=== PATIENT | female | born 1965 | race Caucasian/White ===

== ENCOUNTER 2020-04-30 02:26 | Outpatient (CLI) | payer OTHER, SELFPAY ==
[2020-04-30 23:12] LABS: SARS-CoV-2 RNA PCR Negative
== END 2020-04-30 02:27 | disposition home or self-care (01) ==
LOC: ANHCOVIDDT 02:26
PROVIDERS: PCP Internal Medicine; Visit Provider Internal Medicine Gastroenterology
DX: Z01.812 Encounter for preprocedural laboratory examination (principal); Z20.828 Contact with and (suspected) exposure to other viral communicable diseases
CPT/HCPCS: 87635; C9803; U0003

== ENCOUNTER 2020-05-03 00:12 | Day surgery (SDC) | payer OTHER, SELFPAY ==
[2020-04-27 13:21] VITALS: BMI 29.0
[2020-05-03 06:38] VITALS: BMI 27.9
[2020-05-03] MEDS: LACTATED RINGERS 1,000 ML 150 ML IV CONT (06:41)
--- NOTE | 2020-05-03 07:03 | WPDANESEPPF ---
Anes - Initial Pre Proc Eval Procedure: Operation Date: 05/03/20 07:30 Proposed Procedures p Screening Colonoscopy - Dany Yo MD Date/Time: 05/03/20 07:03 Surgeon: Dany Yo MD Pre Op Diagnosis: neoplasm screening, fm hx colon ca Patient Data Age: 55 Gender: F Height: 5 ft 4 in Weight: 73.9 kg Allergies Allergy/AdvReac Type Severity Reaction Status Date / Time No Known Allergies Allergy Unknown Verified 05/03/20 06:36 Home Medications Medication Instructions Recorded Confirmed Type lisinopril 10 mg tablet 10 mg PO DAILY 06/18/19 04/27/20 History rosuvastatin 10 mg tablet 10 mg PO DAILY 06/18/19 04/27/20 History apple cider vinegar 1 piece of gum PO DAILY 04/27/20 05/03/20 History Patient hx anesthesia problems: none Family hx anesthesia problems: none PMFSH Past Medical History Medical History (Updated 05/03/20 @ 07:04 by Endy Wallace MD) History of tonsillitis 1969 or 68 HTN (hypertension) Hyperlipidemia Surgical History Surgical History (Updated 05/03/20 @ 07:04 by Endy Wallace MD) H/O colonoscopy Family History Family History Father Carcinoma of colon Mother Breast cancer Sibling Multiple sclerosis Social History Social History Smoking status: Former smoker Alcohol use details: SOCIAL ON WEEKENDS Substance use: never Living arrangements: with family Gender identity (if verbalized by the patient): Female Spiritual care concerns: No Anes - Eval Final PreProcedure Day of Procedure 05/03/20 07:03 Patient weight: overweight Heart: regular rate and rhythm Lungs: clear to auscultation Airway: Mallampati scale class 1 Neurological: alert and oriented Last oral intake: >/= 8 hours ASA classification: II Emergent: no Anesthetic plan: proceed Anesthesia type and monitoring: general GIVS and standard monitoring Informed Consent: The patient's anesthetic plan and its attendant risks and benefits were discussed with the patient/family/POA. Questions were solicited and answers provided to the satisfaction of the patient/family/POA.
[2020-05-03] MEDS: SIMETHICONE ORAL SUSPENSION 20 MG/0.3 ML 30 ML BOTTLE 0.6 ML IRRIGATION (07:52)
--- NOTE | 2020-05-03 08:00 | WPDGICN ---
Assessment and Plan Assessment and plan (1) Encounter for screening colonoscopy: Code(s): Z12.11 - Encounter for screening for malignant neoplasm of colon Status: Acute Assessment and Plan: Patient's family history is significant that her father had colon cancer for this reason screening colonoscopy is suggested now and at 5 year intervals in the future. GI Consult Note Consult date/time: 05/03/20 08:00 HPI: Aide Holloway is a 55 year old female Presents for screening colonoscopy. Family history is significant her father had colon cancer. Patient states that her own weight appetite bowel movements are normal. She denies abdominal pain. She has had no bleeding. Her bowel habits are described as normal. Review of Systems Review of Systems: All systems reviewed & are unremarkable except as noted in HPI and below PMFSH Past Medical History Medical History (Updated 05/03/20 @ 08:01 by Dany Yo MD) History of tonsillitis 1969 or 68 HTN (hypertension) Hyperlipidemia Surgical History Surgical History (Updated 05/03/20 @ 07:04 by Endy Wallace MD) H/O colonoscopy Family History Family History Father Carcinoma of colon Mother Breast cancer Sibling Multiple sclerosis Social History Social History Smoking status: Former smoker Alcohol use details: SOCIAL ON WEEKENDS Substance use: never Living arrangements: with family Gender identity (if verbalized by the patient): Female Spiritual care concerns: No Meds Home Medications and Allergies Home Medications Medication Instructions Recorded Confirmed Type lisinopril 10 mg tablet 10 mg PO DAILY 06/18/19 04/27/20 History rosuvastatin 10 mg tablet 10 mg PO DAILY 06/18/19 04/27/20 History apple cider vinegar 1 piece of gum PO DAILY 04/27/20 05/03/20 History Allergies Allergy/AdvReac Type Severity Reaction Status Date / Time No Known Allergies Allergy Unknown Verified 05/03/20 06:36 Exam Narrative: Exam Narrative: Physical exam reveals patient to be alert. Vital signs stable. HEENT exam unremarkable. Lungs are clear to auscultation and percussion. Heart is without murmur or extra sounds. Abdominal exam bowel sounds are present soft nontender with no organomegaly. Digital external rectal exam is normal.
[2020-05-03 08:01] VITALS: BP 120/77; PULSE 82; RESP 20; O2SAT 97
[2020-05-03 08:11] VITALS: BP 107/58; PULSE 76; RESP 20; O2SAT 97
[2020-05-03 08:27] VITALS: BP 114/68; PULSE 77; RESP 18; O2SAT 98
== END 2020-05-03 08:29 | disposition home or self-care (01) ==
PROVIDERS: PCP Internal Medicine; Visit Provider Internal Medicine Gastroenterology
PROC: 0DJD8ZZ Inspection of Lower Intestinal Tract, Via Natural or Artificial Opening Endoscopic (ICD-10-PCS; CPT 45378; principal; 2020-05-03 07:30)
DX: Z12.11 Encounter for screening for malignant neoplasm of colon (principal); I10 Essential (primary) hypertension; E78.5 Hyperlipidemia, unspecified; Z87.891 Personal history of nicotine dependence
CPT/HCPCS: 45378; J2704; J7120

== ENCOUNTER 2024-08-19 11:00 | Outpatient (RCR) | payer OTHER, SELFPAY ==
--- NOTE | 2024-07-02 14:42 | PTOPEVAL1 ---
Assessment and note entered by Roxane Negron, PT Evaluation Information Assessment Status Evaluation Diagnosis low back pain unspec M54.5 ICD-10 Condition Codes (PT) Pain in low back M54.50,Weakness R53.1 Onset chronic Subjective Information Pt reports has always had back pain, since her 20' s. Has had issues like this previously but usually it goes away in a couple days. this would happen initially 1x every 2-3 years but has been getting more frequent. This has been 2-3 times this year. Was getting dressed in the morning with sitting and brought her right foot up to don undergarment and had immediate intense pain almost like an electric shock . Pt went to MD, got a steroid shot, oral medications. States she usually is slow to get going in the mornings, needs to stretch. 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 In the last year would do standing and sitting. Reported Pain Level Pain Score 0: Self Report Assessment PT Clinical Summary Pt presents with history of back issues that has increased in frequency over the years, and this occurrence was much more intense. She presented to her PCP and was provided medications for her pain which she reports has returned to her baseline. Evaluation shows decreased lumbopelvic core strength and stability, pelvic upslip and likely leg length discrepancy. She also shows increased resting lumbar muscle tone and abnormal lumbar segmental mobility. Pt will benefit from physical therapy in order to address deficits, and reduce instances of flare up in the future. Plan of Care Interventions Electrical Stimulation,Hot Pack/Cold Pack,Manual Therapy,Neuro Re-education,Patient/Caregiver Education,Therapeutic Activities,Therapeutic Exercise,Self-Care/Home Management,Other Other Interventions Taping PT Services Indicated Yes Treatment Frequency and 1-2x weekly x 10 visits Duration These treatments will address the objective and functional deficits as defined above. The patient will be advanced safely and appropriately in order for the patient to progress towards his/her prior level of function. Additional exercises will be introduced and as well as a comprehensive home exercise program upon discharge, if needed, ?to ensure carryover of functional gains achieved in the clinic. This treatment plan has been reviewed and agreement upon by the patient.
--- NOTE | 2024-07-02 14:42 | OPREHPOC ---
Outpatient Therapy Plan of Care This is a Multidisciplinary Plan of Care that may contain components documented by all disciplines (PT, OT, and ST.) PT Problem 1 PT Problem #1 Knowledge Deficit PT Goal 1 Goal / Goal Update Pt will be independent in HEP Pt will verbalize understanding of diagnosis and prognosis Target Visit 5 PT Problem 2 PT Problem #2 Pain PT Goal 1 Goal / Goal Update Pt will report greatest pain level at 3/10 or less to improve ADLs and activities Target Visit 5 PT Goal 2 Goal / Goal Update Pt will report resolution of pain to return to PLOF Target Visit 10 PT Problem 3 PT Problem #3 Impaired Strength PT Goal 1 Goal / Goal Update Pt will demo core strength of 4/5 of the TRAM to improve lumbopelvic stability PT Goal 2 Goal / Goal Update Pt will demo 4+/5 or greater strength in BLE to improve knee stability and kinematics with activities Target Visit 10
--- NOTE | 2024-07-30 10:40 | PCPTNOTE ---
Patient called & cancelled scheduled appointment this date due (07/30/2024) to weather
--- NOTE | 2024-08-20 07:56 | PTOPDC ---
Assessment and note entered by Roxane Negron, PT Evaluation Information Assessment Status Discharge Diagnosis low back pain unspec M54.5 ICD-10 Condition Codes (PT) Pain in low back M54.50,Weakness R53.1 Onset chronic Subjective Information Pt reports no major flare ups with low back since starting physical therapy. Pt reports no more pain or discomfort throughout the day. Reported Pain Level Pain Score 0: Self Report Additional Pain Score Comments patient reports 0/10 pain with all ADLs and movements Assessment PT Clinical Summary Patient seen for physical therapy for low back pain for 7 sessions. Pt presents with increased lumbopelvic core strength and stability and BLE muscle strength. Pt demonstrates decrease lumbar tone; and thoracic spine mobility due to stretching. Pt reports no low back pain flare up since beginning physical therapy and reports no pain with ADLs and other movements performed throughout the day. Pt has met most of her goals and is happy with progress; therefore will discharge her from physical therapy. Plan of Care PT Services Indicated No
== END 2024-08-20 08:36 | disposition home or self-care (01) ==
LOC: ANHHIPT 11:00
PROVIDERS: PCP Nurse Practitioner Family; Visit Provider Nurse Practitioner Family
DX: M54.50 Low back pain, unspecified (principal)
CPT/HCPCS: 97110; 97140; 97161; 97750

== ENCOUNTER 2025-06-24 00:43 | Day surgery (SDC) | payer OTHER, SELFPAY ==
[2025-06-03 13:28] VITALS: BMI 27.8
--- OUTSIDE RECORDS SUMMARY | 2025-06-24 00:46 | XMS_ITS | Data Portability ---
Author Organization [facility], [id number] Address [address] [place] [address] Assessment No assessment recorded. Plan of Treatment Reminders Order Date Submit Date Provider Last Modified By Organization Details Last Modified Time Details Appointments ANNUAL- EST 15 2025 07:45A M ERNESTO KENT WHNP Not available Not available Not available Lab HPV DNA, high-ri sk 2024 025 [place] ([facility]), [address], [place], [address], 09/16/2024 08:59:51 pap, LB [address] [facility] ([facility]), [address], [place], [address], 09/16/2024 08:59:51 Referral None recorde d. Procedures None recorde d. Surgeries None recorde d. Imaging MAMMO, screeni ng, bilater al [address] [facility] - Radiology New Fax # As Of 11/12/23), [address] [facility] [place], [facility], [place], [address], 09/26/2024 14:59:40 Medication Orders None recorde d. Patient TargetsNo targets recorded. Patient InstructionsNo instructions recorded. Reason for Referral None Reported. Results Created Date Observation Date Name Description Value Unit Range Abnormal Flag Note LastModifiedBy Organization Detail LastModifiedTime 09/11/1909/16/2024 PAP TEST THIN PREP Pap test thin prep Negati ve for Intrae pithel ial Lesion or Malign armand normal ACCES SANGEETA #: 25-PS [id number] 27 [facility] e: Cervi abhi/E ndoce rvica l LMP: 1 Date Taken : 09/11 Speci men Type: ThinP rep Vial Date Repor itzel: 2024 Clini abhi Data: Cytot ech: Shanicejeimy Cao er, CT( CP) Date Repor itzel: 2024 Revie wed By: Chaim Elizabeth on, CT( CP) Speci men Adequ acy: Satis facto ry for evalu ation Scant cellu larit y Gener al Categ oriza tion: NEGAT CONRAD FOR INTRA EPITH ELIAL LESIO N OR MALIG JEREMY Inter preta tion/ Resul t: Atrop hy Comme nts/R ecomm endat ions: Blood prese nt Cervi abhi cytol ogy is a scree dahlia test prima rily for squam ous cance rs and precu rsors and has assoc iated false -nega tive and false -posi tive resul ts. New techn ologi es such as liqui d-bas ed prepa ratio ns may decre ase but will not elimi ramana all false -nega tive resul ts. Regul ar sampl ing and follo w-up of unexp oliver d clini abhi signs and sympt oms are recom lisa d to minim ize false negat conrad resul ts. D N A A S S A Y S R E P O R T TEST NAME RESUL TS ----- ---- ----- -- HPV High Risk Screnatividad n (TMA) ThinP rep Vial The human papil lomav irus (HPV) High Risk Scree n is an FDA-a pprov ed in-vi tro ampli fied nucle ic acid test for the quali tativ e detec tion of E6/E7 viral mRNA. Resul ts shoul d be corre lated with patie nt prese ntati on, histo ry, cervi abhi cytol ogy and other clini abhi and labor atory findi ngs. See https ://Little1/s ites/ defau lt/fi 0 /- [id number] _002_ 01.pd f for keisha er infor asa n. Test perfo rmed by [employer] [facility] [employer] [facility], [address], [place] [address] , Ted Johnson ra, DO, Labor atorHunite Dire tor, CLIA# [id number] HPV High Risk *HPV NOT DETEC ITZEL (TYPE S 16, 18, 31, 33, 35, 39, 45, 51, 52, 56, 58, 59, 66, 68) *HPV: The human papil lomav irus (HPV) High Risk Joel [place] is an FDA-a pprov ed in-vi tro ampli fied nucle ic acid test for the quali tativ e detec tion of E6/E7 viral mRNA. Resul pedrito luther be corre lated with patie nt prese ntati on, histo ry, cervi abhi cytol ogy and other clini abhi and labor atory findi ngs. See https ://Little1/s ites/ defau lt/fi /AW- 12579 _002_ 01.pd f for furth er infor asa n. Test perfo rmed by [employer] [facility] [facility], [address], [place] [address] , Ted Johnson ra, DO, [facility], CLIA# [id number] End of Repor t Techn ical servi maricarmen provi ded by [employer] [facility] [employer], [facility], [address] [place] [address] Chidi roque MD, [facility]un[facility]. Case revie wed and diagn osis rende red at [employer] [facility] [employer], [facility], [address] [place] [address] Chidi roque MD, [facility] tor. CONFI DENTI AL Not Available [facility] ([facility]) [address], [place], [address], 09/16/2024 08:59:51 09/11/19 25 09/12/2024 HPV HIGH RISK SCREE N (TMA) HPV high risk NOT DETECT ED normal Not Available [facility] ([facility]) [address], [place], [address], 09/16/2024 08:59:51 09/10/19 MAMMO , scree dahlia, bilat eral No observ ation record ed. [email or web address] Not Available 2024 17:00:27 01/09/20 25 01/08/2025 MAMMO , scree dahlia, bilat eral No observ ation record ed. [email or web address] [facility] [address] [place], [address], 01/26/2025 09:50:50 Result Notes None recorded. Problems Name Problem SNOMED Code Status Onset Date Resolution Date Notes Provider Name and Address Organization Details Recorded Time Hypercholes terolemia 57709790 Active ERNESTO KENT [facility] [address], [place], [address] , [facility] 5 10:02:08 Pure hypercholes terolemia 893940852 Active Hypercho lesterol emia, Problem Code: 272.0; Problem Code Type: ICD-9; Startdat e: '2012'; Not Available [employer] 5 12:21:02 Uterine leiomyoma 32761923 Active 2017 Uterine fibroid, Problem Code: 218.9; Problem Code Type: ICD-9; Not Available [employer] 5 12:21:03 Hypertensiv e disorder 79593394 Active 2024 ERNESTO KENT [facility] [address], [facility] [place], [address] , [place] [facility] 5 10:11:46 Palpitation s 78648742 Active 2024 ERNESTO KENT WHFRANK[facility] [address], [facility] [place], [address] , [place] - [facility] 5 10:11:54 Problem Notes None recorded. Procedures Surgical History Date Name Laterality Status Provider Name and Address Organization Details Recorded Time 05/11/20 Colonoscopy completed Tessa Kaye [place] [facility] 09/05/2024 11:13:29 01/09/20 25 Date of Last Mammogram completed ERNESTO ROSADO [address], [place], [address], [place] - [facility] 01/12/2025 11:07:21 07/08/20 21 Date of Last Pap Smear completed Tessa Kaye [place] [facility] 09/05/2024 11:13:09 05/11/20 20 Date of Last Colonoscopy completed [place]essa Kaye [place] [facility] 09/10/2024 09:55:42 07/13/20 15 endometrial biopsy completed Tessa Kaye [place] [facility] 09/05/2024 11:19:21 12/22/19 09 removal of mole of skin by excision completed [place]essa Kaye [place] [facility] 09/05/2024 11:20:30 Dilation and curettage completed Tessa Kaye [place] [facility] 09/05/2024 11:19:06 Mirena, 52 mg completed Tessa Kaye [place] [facility] 09/05/2024 11:20:05 Tonsillectomy completed Tessa Kaye [place] [facility] 09/05/2024 11:20:43 dilation and curettage completed Not Available [facility] 11/20/2024 14:09:38 tonsillectomy completed Not Available [facility] 11/20/2024 14:09:38 introduction of Mirena coil completed Not Available [facility] 11/20/2024 14:09:38 endometrial biopsy completed Not Available [facility] 11/20/2024 14:09:38 removal of Mirena coil completed Not Available [facility] 11/20/2024 14:09:38 colonoscopy completed Not Available [facility] 11/20/2024 14:09:38 destruction of lesion of skin completed Not Available [facility] 11/20/2024 14:09:38 Imaging Results None recorded. Procedure Notes None recorded. Medical Equipment None Reported. Allergies No known drug allergies Medications Name Sig Start Date Stop Date Status Note LastModified by Organization Details LastModified Time lisinopril 10 mg tablet Take 1 tablet every day by oral route. active Not Available Not Available No t Available metoprolol succinate ER 25 mg tablet,extende d release 24 hr Take 1 tablet every day by oral route. active Not Available Not Available No t Available rosuvastatin 10 mg tablet Take 1 tablet every day by oral route. active Not Available Not Available No t Available Vitamin D3 50 mcg (2,000 unit) tablet Take 1 tablet every day by oral route. active Not Available Not Available No t Available Vitals Date Recorded Body height Body mass index (BMI) Body weight Systolic And Diastolic Provider Name and Address Organization Details Last Updated DateTime 09/10/2024 165.1 cm 27.3 kg/m2 67643.15 g 118/66 mm[Hg] Tessa Kaye [facility] [place] [facility] 09/10/2024 09:52:42 Social History Question Answer Notes LastModified by Organizat ion Details LastModified Time Tobacco Smoking Status Never Smoker Tessa Kaye [facility] [place] 09/05/2024 11:18:18 Do You Have An Advance Directive? No [email or web address] Information not available 09/10/2024 If You Are , What Was Your Level Of Alcohol Consumption Prior To ? None Information not available 09/10/2024 How Many Years Have You Consumed Alcohol? 42 [email or web address] Information not available 09/10/2024 What Is Your Level Of Caffeine Consumption? Occasional [email or web address] Information not available 09/10/2024 What Type Of Diet Are You Following? REGULAR Information not available 09/10/2024 What Is Your Relationship Status? Information not available 09/05/2024 Sex: Unknown Functional Status Question Answer Note LastModified by Organizat ion Details LastModified Time How many times per week do you consume alcohol? 1-2 times per week Information not available 09/05/2024 Do you use any illicit or recreational drugs? No [email or web address] Information not available 09/05/2024 What is your level of alcohol consumption? Moderate Information not available 09/10/2024 Are you currently employed? 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 Moderate SocialHisto ryQuestion: 'Moderate Amount of Exercise (1-3 times weekly)'; [email or web address] Information not available 11/20/2024 Mental Status None recorded. Family History Relationship Description Onset Age of this Age Resolved Age Notes LastModified by Organization Details LastModified Time Maternal Grandfather Hypertensive disorder [email or web address] Not available 2024 11:16:16 Mother Hypertensive disorder [email or web address] Not available 2024 11:16:16 Mother Family history of breast cancer 67 [email or web address] Not available 2024 11:17:43 Father Myocardial infarction 70 [email or web address] Not available 09/05 11:16:39 Father Family history of cancer of colon 50 [email or web address] Not available 2024 11:17:11 Unspecified Relation Family history taken Family Medica l Histor y Review ed Not available 11/20/2024 14:54:48 Father Malignant neoplastic disease Cancer Fa-Col on-age 50-abe vived- of [place] age 70 Mom - breast -dx age 67-lum pectom y and radiat ion Not available 11/20/2024 14:54:48 Father Acute myocardial infarction 70 Myocar dial Infarc tion, Acute of [place] age 70 Proble m Code: 410.9; Proble m Code Type: ICD-9; Not available 11/20/2024 14:54:49 Mother Malignant neoplastic disease Cancer Fa-Col on-age 50-abe vived- of [place] age 70 Mom - breast -dx age 67-lum pectom y and radiat ion Not available 11/20/2024 14:54:49 Medical History Condition Response Reviewed with no changes Y Cancer- Genetic screening Cardiology- High Cholesterol Y Cardiology- High Blood Pressure Y Gynecological History Statement/Question Response Flow Heavy Date of Last Mammogram 01/08/2025 History of Fibroids Y Date of LMP 09/20/2020 Current Control Method: Menopause Duration of Flow (days) 7 Age at Menarche 11 Current Control Method Partner Vas ectomy History of HPV N Cologuard Testing N HPV Vaccine Not Completed Post Menopausal Hormone Therapy User Nev er Date of Last Colonoscopy 05/11/2020 Frequency of Cycle (Q days) 20 History of Abnormal PAP N Date of Last HPV Test 07/08/2021 Date of Last Pap Smear 07/08/2021 LMP Approximate Colonoscopy 05/11/2025 Date of Last Cholesterol Screening 07/23 Obstetrics History GPAL:G 2 P 1 1 0 2 Type Value Full Term 1 Premature 1 Living 2 Total 2 Immunizations Vaccine Type Date Status Note Provider Nam e and Address Organization Details Recorded Time SARS-COV-2 (COVID-19) vaccine, UNSPECIFIED 11/20/2020 completed Tessa gary [facility] 09/05/2024 11:11:16 SARS-COV-2 (COVID-19) vaccine, UNSPECIFIED 12/21/2020 completed Tessa gary, [facility] 09/05/2024 11:11:27 Tdap 07/23/2009 [facility] 09/05/2024 11:11:49 Past Encounters Encounter ID Performer Location Encounter Start Date Encounter Closed Date Diagnosis/Indication Diagnosis SNOMED-CT Code Diagnosis ICD10 Code Diagnosis IMO Codes Diagnosis Note [id number] ERNESTO ROSADO [id number] [address] [place] [address] 09/10/2024 09:18:37 09/10/2024 10:17:56 Screening for malignant neoplasm of cervix 626097778 Z12.4 -pap today-we will call you with results Human ivon lloma virus screening 969137146 Z11.51 Screening for malignant neoplasm of breast 276052911 Z12.39 -call to schedule mammogram Gynecologi c examination 32888380 Z01.419 Body mass index 25-29 - overweight 014671509 Z68.27 Health Concerns Section Related Observation LastModified by Organization Detai ls LastModified Time None Recorded Concern Status LastModified by Organization Details LastModified Time None Recorded Advance Directives Directive N: Payers Insurance Date Sequence Insurance Name Policy Number Policy Newman Covered Member ID Newman Member ID Guarantor Name 09/10/2024 1 [email or web address] [facility] ([place]) [id number] Ivan Holloway [id number] Ivan Holloway Notes Date Note Type Note Provider Name and Address Organization Details Recorded Time 09/10/2024 text/html [facility] Annual Well-Women Visit Age 40-64Reported by PatientPreventive Health ScreeningsFor relevant family history, patient reportshas a family history of breast cancer (mother-dx age 65)andhas a family history of colon cancer (father). For current medical history, patient reportsreviewed and documented. For last pap smear, patient reportsdue. For mammography, patient [id number]. For colorectal screening, patient reportsdue.Sexually ActiveFor sexually active, patient reportsyes: spouse.STI ScreenFor sti screen, patient reportsdeclines sti testing.Genito-urinary SymptomsFor vagina, patient reportsvaginal dryness (during prolonged episode of intercourse, no dyspareunia. declines anything to improve sx at this time.). ERNESTO ROSADO [address], [place], [address], [facility] 09/10/2024 10:17:02 OBGyn Episode No OBEpisode recorded.
[2025-06-24 10:41] VITALS: BP 128/84; PULSE 92; RESP 18; TEMP 36.2; O2SAT 99
--- NOTE | 2025-06-24 10:43 | P.PNAN_ITS ---
Anes - Initial Pre Proc Eval Procedure: Operation Date: 06/24/25 11:30 Proposed Procedures p Screening Colonoscopy - Tae Fiore MD Date/Time: 06/24/25 10:43 Surgeon: Tae Fiore MD Pre Op Diagnosis: Family history of malignant neoplasm of digestive Patient Data Age: 60 Gender: F Height: 1.63 m Weight: 72.3 kg Last Vital Signs Temp 36.2 C L 06/24/25 10:41 Pulse 92 06/24/25 10:41 Resp 18 06/24/25 10:41 BP 128/84 06/24/25 10:41 Pulse Ox 99 06/24/25 10:41 O2 Del Method Room Air 06/24/25 10:41 Allergies Allergy/AdvReac Type Severity Reaction Status Date / Time No Known Allergies Allergy Unknown Verified 06/24/25 10:40 Home Medications ?Medication ?Instructions ?Recorded ?Confirmed ?Type metoprolol succinate 25 mg See Rx Instructions .Route 01/27/25 06/03/25 Rx tablet,extended release 24 hr .COMPLEX #45 tabs alprazolam 0.5 mg tablet 0.5 mg PO DAILY PRN anxiety #5 tabs 04/10/25 06/03/25 Rx lisinopril 10 mg tablet See Rx Instructions .Route 1 07/25/24 06/03/25 Rx .COMPLEX #90 tabs rosuvastatin 10 mg tablet See Rx Instructions .Route 1 07/25/24 06/03/25 Rx .COMPLEX #90 tabs Patient hx anesthesia problems: none Family hx anesthesia problems: none Results Review: All pre-operative results and documents have been reviewed as part of the pre- operative evaluation. [facility] Past Medical History Medical History Hyperlipidemia HTN (hypertension) History of tonsillitis 1968 or 68 Surgical History Surgical History H/O colonoscopy Family History Family History Father Carcinoma of colon Mother Breast cancer Hypertension Heart disease Sibling Multiple sclerosis Grandparent Heart disease Social History Social History Social History: 04/03/25 very confident with medical forms Smoking status: Former smoker Alcohol intake: current Drinks per week: 4 Substance use: never Substance use type: does not use Lack of Transportation: No Lack of Food: Never True Current Housing: I Have Housing Concerned About Future Housing: No Difficulty Paying Gas/Electric Bills: No Difficulty Paying for Meds: No Currently Unemployed: No Education: High School Diploma/GED Difficulty w/ Childcare or Family Care: No Living arrangements: with family Occupation/Education: occupation 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[employer] Gender identity (if verbalized by the patient): Female Spiritual care concerns: No Agree to blood products: Yes Anes - Eval Final PreProcedure Day of Procedure 06/24/25 10:43 Patient weight: overweight Heart: regular rate and rhythm Lungs: clear to auscultation Airway: Mallampati scale class II Neurological: alert and oriented Last oral intake: >/= 8 hours ASA classification: II Emergent: no Anesthetic plan: proceed Anesthesia type and monitoring: general GIVS and standard monitoring Results Review: All pre-operative results and documents have been reviewed as part of the pre- operative evaluation. Informed Consent: The patient's anesthetic plan and its attendant risks and benefits were discussed with the patient/family/POA. Questions were solicited and answers provided to the satisfaction of the patient/family/POA.
--- NOTE | 2025-06-24 10:46 | P.HP_ITS ---
H&P: HPI History of Present Illness Date/Time: 06/24/25 10:46 Chief Complaint: Family history of colon cancer Narrative: This patient has family history of colorectal cancer. Her father had colorectal cancer at age 50. Her last colonoscopy was 5 years ago, no polyps. Review of Systems Review of Systems: All systems reviewed & are unremarkable except as noted in HPI and below PMFSH Past Medical History Medical History Hyperlipidemia HTN (hypertension) History of tonsillitis 1968 or 68 Surgical History Surgical History H/O colonoscopy Family History Family History Father Carcinoma of colon Mother Breast cancer Hypertension Heart disease Sibling Multiple sclerosis Grandparent Heart disease Social History Social History Social History: 04/03/25 very confident with medical forms Smoking status: Former smoker Alcohol intake: current Drinks per week: 4 Substance use: never Substance use type: does not use Lack of Transportation: No Lack of Food: Never True Current Housing: I Have Housing Concerned About Future Housing: No Difficulty Paying Gas/Electric Bills: No Difficulty Paying for Meds: No Currently Unemployed: No Education: High School Diploma/GED Difficulty w/ Childcare or Family Care: No Living arrangements: with family Occupation/Education: occupation 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[employer] Gender identity (if verbalized by the patient): Female Spiritual care concerns: No Agree to blood products: Yes Meds Home Medications and Allergies Home Medications ?Medication ?Instructions ?Recorded ?Confirmed ?Type metoprolol succinate 25 mg See Rx Instructions .Route 01/27/25 06/03/25 Rx tablet,extended release 24 hr .COMPLEX #45 tabs alprazolam 0.5 mg tablet 0.5 mg PO DAILY PRN anxiety #5 tabs 04/10/25 06/03/25 Rx lisinopril 10 mg tablet See Rx Instructions .Route 1 07/25/24 06/03/25 Rx .COMPLEX #90 tabs rosuvastatin 10 mg tablet See Rx Instructions .Route 1 07/25/24 06/03/25 Rx .COMPLEX #90 tabs Allergies Allergy/AdvReac Type Severity Reaction Status Date / Time No Known Allergies Allergy Unknown Verified 06/24/25 10:40 Vital Signs Vital Signs - 24 hr 06/24/25 10:41 Temperature 97.2 F L Pulse Rate 92 Respiratory Rate 18 Blood Pressure 128/84 Pulse Oximetry 99 Oxygen Delivery Room Air Exam Const: General: cooperative and healthy appearing Resp: Effort & Inspection: normal respiratory effort and able to speak in complete sentences Auscultation: clear to auscultation bilaterally Cardio: Rate: regular rate Rhythm: regular rhythm GI: Inspection: normal to inspection GI Palp: No No hepatosplenomegaly present Auscultation: normal bowel sounds Rectal Exam: deferred Skin: General skin exam: normal color Psych: Appearance: grossly normal Mental Status: mental status grossly normal Assessment and Plan Assessment and plan (1) Family history of colon cancer: Code(s): Z80.0 - Family history of malignant neoplasm of digestive organs Status: Acute Assessment and Plan: The patient is deemed a good candidate for the procedure. Consent signed. Will proceed. Prior Studies I have reviewed the following patient records and this information was taken into consideration when formulating the assessment and plan.: previous labs, previous ER visits, previous hospitalizations and previous clinic visits
[2025-06-24] MEDS: LACTATED RINGERS 1,000 ML 150 ML IV CONT (10:50)
[2025-06-24 11:26] VITALS: BP 101/61; PULSE 74; RESP 20; O2SAT 96
[2025-06-24 11:36] VITALS: BP 104/66; PULSE 84; RESP 24; O2SAT 97
[2025-06-24 11:46] VITALS: BP 108/66; PULSE 75; RESP 17; O2SAT 97
== END 2025-06-24 11:55 | disposition home or self-care (01) ==
PROVIDERS: PCP Nurse Practitioner Family; Referring Provider Nurse Practitioner Family; Visit Provider Internal Medicine Gastroenterology
PROC: 0DJD8ZZ Inspection of Lower Intestinal Tract, Via Natural or Artificial Opening Endoscopic (ICD-10-PCS; CPT 45378; principal; 2025-06-24 11:30)
DX: Z12.11 Encounter for screening for malignant neoplasm of colon (principal); K64.8 Other hemorrhoids; E78.5 Hyperlipidemia, unspecified; I10 Essential (primary) hypertension; Z87.891 Personal history of nicotine dependence; Z80.3 Family history of malignant neoplasm of breast; Z80.0 Family history of malignant neoplasm of digestive organs; Z82.49 Family history of ischemic heart disease and other diseases of the circulatory system
CPT/HCPCS: 45378; J2704; J7120